=== PATIENT | female | born 1945 | race Asian ===

== ENCOUNTER 2023-08-09 08:45 | Outpatient (RCR) | payer OTHER, SELFPAY | END 2023-08-09 23:59 | disposition home or self-care (01) | LOC: RPT 08:45 | PROVIDERS: ATTENDING PHYSICIAN Physician Assistant | DX: M17.12 Unilateral primary osteoarthritis, left knee (principal); Z73.6 Limitation of activities due to disability; M25.562 Pain in left knee | CPT/HCPCS: 97110; 97161 ==

== ENCOUNTER 2023-09-06 08:58 | Outpatient (RCR) | payer OTHER, SELFPAY | END 2023-09-06 23:59 | disposition home or self-care (01) | LOC: RPT 08:58 | PROVIDERS: ATTENDING PHYSICIAN Physician Assistant | DX: M17.12 Unilateral primary osteoarthritis, left knee (principal); Z73.6 Limitation of activities due to disability; M25.562 Pain in left knee | CPT/HCPCS: 97110 ==

== ENCOUNTER 2023-09-20 08:47 | Outpatient (RCR) | payer OTHER, SELFPAY | END 2023-09-20 23:59 | disposition home or self-care (01) | LOC: RPT 08:47 | PROVIDERS: ATTENDING PHYSICIAN Physician Assistant | DX: M17.12 Unilateral primary osteoarthritis, left knee (principal); Z73.6 Limitation of activities due to disability; M25.562 Pain in left knee | CPT/HCPCS: 97110; 97112 ==

== ENCOUNTER → 2023-09-20 12:49 | Outpatient (REF) | payer OTHER, SELFPAY | LOC: WDC 12:49 | PROVIDERS: ATTENDING PHYSICIAN Physician Assistant | DX: Z12.31 Encounter for screening mammogram for malignant neoplasm of breast (principal) | CPT/HCPCS: 77063; 77067 ==

== ENCOUNTER → 2024-09-21 13:38 | Outpatient (REF) | payer OTHER, SELFPAY | LOC: WDC 13:38 | PROVIDERS: ATTENDING PHYSICIAN Physician Assistant | DX: Z12.31 Encounter for screening mammogram for malignant neoplasm of breast (principal) | CPT/HCPCS: 77063; 77067 ==

== ENCOUNTER → 2024-09-25 09:50 | Outpatient (REF) | payer OTHER, SELFPAY | LOC: RAD 09:50 | PROVIDERS: ATTENDING PHYSICIAN Physician Assistant | DX: M25.572 Pain in left ankle and joints of left foot (principal); S90.02XA Contusion of left ankle, initial encounter; M81.0 Age-related osteoporosis without current pathological fracture | CPT/HCPCS: 73610; 73630 ==

== ENCOUNTER → 2024-10-02 13:36 | Outpatient (REF) | payer OTHER, SELFPAY | LOC: RAD 13:36 | PROVIDERS: ATTENDING PHYSICIAN Physician Assistant | DX: M81.0 Age-related osteoporosis without current pathological fracture (principal) | CPT/HCPCS: 77080 ==